=== PATIENT | male | born 1935 | race Caucasian/White ===

== ENCOUNTER 2016-10-06 05:52 | Inpatient (IN) | payer MEDICARE, OTHER ==
--- NOTE | ~2016-10-06 | OP ---
Record Of Operation [facility] [address] [place]. [address] NAME: PITO VERDUGO : 37 STATUS : ADM IN PAT#: [id number] AGE: 81 ADM/REG DATE : 10/06/16 MR#: [id number] REPORT SERV DATE: 10/06/16 DICTATED BY: COREY MORIN II DATE: 10/06/16 REPORT STATUS : Draft TRANSCRIBED BY: MODL DATE: 10/06/16 DATE OF PROCEDURE: 10/06/2016 SURGEON: Corey Morin M.D. ACCOUNTS PAYABLE COORDINATOR: Dr. Becca Ayala. PREOPERATIVE DIAGNOSIS: Critical grade 3 left carotid stenosis. POSTOPERATIVE DIAGNOSIS: Critical grade 3 left carotid stenosis. PROCEDURES: 1. Left carotid endarterectomy with bovine patch angioplasty. 2. Completion intraoperative duplex ultrasound. ANESTHESIA: General. IV FLUIDS: 800 mL. ESTIMATED BLOOD LOSS: 75 mL. SPECIMENS: Plaque and thrombus. DRAINS: 15-[place] Carloz. DETAILS OF THE PROCEDURE: The patient was taken to the operating room, and placed in supine on the operating room table. General anesthesia was achieved. Protective padding and a shoulder roll were placed. We then prepped and draped in sterile fashion. An incision was made along the anterior border of the sternocleidomastoid. The platysma was divided with electrocautery. The facial vein was ligated with 2-0 silk suture. The carotid sheath was opened, and the vessel loops were placed around the common internal and external carotid artery. The hypoglossal and vagus nerves were identified and preserved. Systemic heparin was given. Arteriotomy was made in the common carotid and extended through the bifurcation onto the internal carotid. A shunt was placed without difficulty. There was hemorrhagic plaque and thrombus present within the internal carotid. Stenosis was more than 90%. Using a [place] elevator, we removed all visible plaque down to a smooth endarterectomy surface. A 7-0 tacking suture was placed distally. The vessel was closed using a bovine pericardial patch and a running 6-0 Prolene. Prior to closure, we flushed and removed the shunt. Intraoperative ultrasound was performed demonstrating a normal carotid waveform. There was no thrombus, filling defect, or debris noted. There was no evidence of dissection. We thoroughly irrigated, ensured hemostasis, placed a drain, and then closed with interrupted 3 0 Vicryl in the platysma, and closed the skin with Monocryl. At the end of the procedure, the patient was stable. He had tolerated it well. He is currently waking from general anesthesia. Record Of Operation [facility] [address] [place]. [address] NAME: PITO VERDUGO : 37 STATUS : ADM IN [facility]#: [id number] AGE: 81 ADM/REG DATE : 10/06/16 MR#: [id number] REPORT SERV DATE: 10/06/16 DICTATED BY: COREY MORIN II DATE: 10/06/16 REPORT STATUS : Draft TRANSCRIBED BY: ANAM DATE: 10/06/16 JELANI/ANAM Corey Morin II, M.D. / [id number] CC: Xu Sheppard II
[~2016-10-06 05:52] MED LIST: ASAB PO; ASABAYER PO; COREG3 PO; CYANO1000T PO; FELDENE20 MG PO; HCTZ12.5 PO; LIPITOR40 PO; LISINOPRIL40 MG PO; NEXIUM40 PO; NITROSTAT0.4 MG SL; NORV5 PO; PRAVACHOL40 MG PO; VITAMIN D31000 UNIT PO
[2016-10-06 06:50] LABS: BASOPHILS 0.4 %; BASOPHILS ABSOLUTE 0.03 10/3/uL (0.0-0.16); EOSINOPHILS 5.7 %; EOSINOPHILS ABSOLUTE 0.44 10/3/uL (0.0-0.53); HEMATOCRIT 34.4 % (40.0-51.0); HEMOGLOBIN 12.1 g/dL (13.6-17.8); IMMATURE GRANULOCYTES 0.3 %; IMMATURE GRANULOCYTES ABSOLUTE 0.02 10/3/uL (0.0-0.11); LYMPHOCYTES ABSOLUTE 3.22 10/3/uL (0.67-4.30); MEAN CORPUS HGB CONC 35.2 g/dL (32.0-36.0); MEAN CORPUSCULAR HEMOGLOB 33.1 pg (26.0-34.0); MEAN PLATELET VOLUME 7.9 fL (9.2-13.0); MONOCYTES 14.2 %; MONOCYTES ABSOLUTE 1.09 10/3/uL (0.21-1.20); NEUTROPHILS 37.4 %; NEUTROPHILS ABSOLUTE 2.87 10/3/uL (2.02-8.40); PLATELET COUNT 214 10/3/uL (150-400); RBC DISTRIBUTION WIDTH 12.6 % (12.0-16.0); RED CELL COUNT 3.66 10/6/uL (4.7-6.1); WHITE BLOOD CELLS 7.7 10/3/uL (4.5-10.5)
[2016-10-06 06:55] LABS: ASCORBIC ACID (UR NOT ORDER) NEG (NEG); BILIRUBIN, URINE NEGATIVE (NEG); KETONE, URINE NEGATIVE (NEG); LEUKOCYTE ESTERASE(NOT OR NEG (NEG); MANUAL DIFF NO %; WBC (NOT ORDERED) (RFLEX) < 1 (0-5)
[2016-10-06 07:02] LABS: BUN (BLOOD UREA NITROGEN) 27 MG/DL (6-23); CALCIUM, SERUM 9.1 MG/DL (8.5-10.4); CHLORIDE, SERUM 110 MMOL/L (96-112); CO2 (CARBON DIOXIDE) 30 MMOL/L (24-34); CREATININE 1.62 MG/DL (0.70-1.30); GFR AFRICAN AMERICAN 46 ML/MIN (>=60); GFR NON AFRICAN AMERICAN 39 ML/MIN (>=60); GLUCOSE, SERUM 103 MG/DL (60-99); POTASSIUM, SERUM 4.2 MMOL/L (3.5-5.3); SODIUM, SERUM 145 MMOL/L (135-148)
[2016-10-06 11:10] LABS: HEMOGLOBIN 10.1 g/dL (13.6-17.8)
[2016-10-06 11:11] LABS: HEMATOCRIT 29.1 % (40.0-51.0)
[2016-10-06 13:39] LABS: ANISOCYTOSIS 1+ (5-10/OIF) (0-5/OIF); HYPOCHROMIA 1+ (3-10/OIF) (0-2/OIF); LYMPHOCYTES 53 %; LYMPHOCYTES ABSOLUTE (CALC) 4.08 10/3/uL (0.67-4.30); MONOCYTES 8 %; MONOCYTES ABSOLUTE (CALC) 0.62 10/3/uL (0.21-1.20); PLATELET ESTIMATE ADQ (ADEQUATE); SEGMENTED NEUTROPHIL (0) 39 %; TOTAL NUCLEATED CELLS 100
[2016-10-07] MEDS ORDERED: PCET PO (10:11)
== END 2016-10-07 11:15 | disposition home or self-care (01) | DRG 39 ==
LOC: SDC/OF 05:52 → CVICU 11:59
PROVIDERS: Surgery
PROC: 03CL0Z6 (ICD-10-PCS; principal; 2016-10-06 08:15)
DX: I65.22 Occlusion and stenosis of left carotid artery (principal); I27.2 Other secondary pulmonary hypertension; I10 Essential (primary) hypertension; Z79.899 Other long term (current) drug therapy
CPT/HCPCS: 71010; 80048; 81001; 85014; 85018; 85025; 87641; 88304; 88311; 93005; A9270-GY; C1768; J0690; J2250; J2370; J2405; J2550; J2710; J2720; J3010